=== PATIENT | female | born 1965 | race Caucasian/White ===

== ENCOUNTER → 2021-06-06 12:55 | Outpatient (CLI) | payer OTHER, SELFPAY ==
--- NOTE | 2021-06-06 | DI.RAD.S_ITS ---
PROCEDURE: XR HAND RT 2V INDICATIONS: Pain in right hand TECHNIQUE: 3 views of the hand(s) acquired. COMPARISON: None. FINDINGS: Bones: No fractures or dislocations. Carpal bones are normally aligned. No suspicious bony lesions. Scattered mild IP degenerative changes are present. Soft tissues: No suspicious soft tissue calcifications. IMPRESSION: Scattered IP degenerative changes suggestive early arthritic change. Dictated by: Lennie Gonzales M.D. on 06/06/2021 at 17:35 Approved by: Lennie Gonzales M.D. on 06/06/2021 at 17:35
--- NOTE | 2021-06-06 | DI.RAD.S_ITS ---
PROCEDURE: XR CERVICAL SPINE 2V OR 3V INDICATIONS: cervicalgia TECHNIQUE: 2 view(s) of the cervical spine were acquired. COMPARISON: None. FINDINGS: Bones: No fractures or dislocations to the C7 level. Anterior fusion at C5-C7 is present. Disc space narrowing and endplate osteophyte formation at C4-C5 is present. Odontoid view not obtained. No suspicious bony lesions. Soft tissues: No prevertebral soft tissue swelling. IMPRESSION: 1. Postsurgical sequelae. 2. Degenerative disc disease. Dictated by: Buck Durán M.D. on 06/06/2021 at 15:15 Approved by: Buck Durán M.D. on 06/06/2021 at 15:15
== END ==
PROVIDERS: PCP Physician Assistant; Referring Provider Physician Assistant; Visit Provider Physician Assistant
DX: M79.641 Pain in right hand (principal); M50.30 Other cervical disc degeneration, unspecified cervical region
CPT/HCPCS: 72040; 73120

== ENCOUNTER → 2021-06-09 07:03 | Outpatient (CLI) | payer OTHER, SELFPAY ==
[2021-06-09 07:51] LABS: Add Manual Diff / Slide Review NO; Basophils Absolute Auto 0 /uL (0-100); Basophils Percent Auto 0.7 % (0-2); Eosinophils Absolute Auto 100 /uL (0-450); Eosinophils Percent Auto 2.1 % (2-4); Hematocrit 39.5 % (36-46); Hemoglobin 13.2 g/dL (12.0-16.0); Lymphocytes Absolute Auto 2700 /uL (1100-4500); Lymphocytes Percent Auto 47.9 % (25-40); Mean Corpuscular HGB Conc 33.4 % (30-36); Mean Corpuscular Hemoglobin 28.3 PG (26-34); Mean Corpuscular Volume 84.9 fL (80-100); Monocytes Absolute Auto 500 /uL (0-900); Monocytes Percent Auto 8.3 % (3-14); Neutrophils Absolute Auto 2300 /uL (1500-7000); Platelet Count 231 X10^3/uL (150-400); Red Blood Cell Count 4.65 X10^6/uL (4.0-5.2); White Blood Cell Count 5.7 X10^3/uL (4.5-11.0)
[2021-06-09 08:20] LABS: Alanine Aminotransferase 41 IU/L (<35); Albumin 4.2 g/dL (3.5-5.0); Albumin Globulin Ratio 1.6 (1.0-2.8); Alkaline Phosphatase 67 U/L (38-126); Aspartate Aminotransferase 35 IU/L (14-36); BUN Creatinine Ratio 17.6 (6-22); Bilirubin Total 0.4 mg/dL (0.2-1.3); Blood Urea Nitrogen 13 mg/dL (7-17); Calcium 9.6 mg/dL (8.4-10.2); Carbon Dioxide 25 mmol/L (22-32); Chloride 110 mmol/L (98-107); Cholesterol 153 mg/dL (140-199); Estimated Glomerular Filt Rate > 60.0 mL/min (>60); Globulin 2.7 g/dL (1.7-4.1); Glucose 101 mg/dL (70-100); HDL Cholesterol 56 mg/dL (40-60); HEMOLYSIS < 15 (0-50); LDL Cholesterol Calculated 76 mg/dL (<100); Potassium 4.3 mmol/L (3.4-5.1); Sodium 141 mmol/L (137-145); Total Protein 6.9 g/dL (6.3-8.2); Triglycerides 103 mg/dL (35-150)
[2021-06-09 08:50] LABS: TSH w/ Reflex to FT4 2.95 uIU/mL (0.47-4.68)
== END ==
PROVIDERS: PCP Physician Assistant; Referring Provider Physician Assistant; Visit Provider Physician Assistant
DX: Z13.29 Encounter for screening for other suspected endocrine disorder (principal); Z13.220 Encounter for screening for lipoid disorders
CPT/HCPCS: 36415; 80053; 80061; 84443; 85025

== ENCOUNTER → 2021-07-17 07:04 | Outpatient (CLI) | payer OTHER, SELFPAY ==
[2021-07-17 08:35] LABS: Alanine Aminotransferase 35 IU/L (<35); Albumin Globulin Ratio 1.4 (1.0-2.8); Alkaline Phosphatase 68 U/L (38-126); Aspartate Aminotransferase 32 IU/L (14-36); BUN Creatinine Ratio 28.8 (6-22); Bilirubin Total 0.4 mg/dL (0.2-1.3); Blood Urea Nitrogen 17 mg/dL (7-17); Calcium 9.4 mg/dL (8.4-10.2); Carbon Dioxide 25 mmol/L (22-32); Chloride 109 mmol/L (98-107); Estimated Glomerular Filt Rate > 60.0 mL/min (>60); Globulin 2.9 g/dL (1.7-4.1); Glucose 136 mg/dL (70-100); HEMOLYSIS < 15 (0-50); Potassium 4.3 mmol/L (3.4-5.1); Sodium 138 mmol/L (137-145); Total Protein 6.9 g/dL (6.3-8.2)
== END ==
PROVIDERS: PCP Physician Assistant; Referring Provider Physician Assistant; Visit Provider Physician Assistant
DX: R94.5 Abnormal results of liver function studies (principal)
CPT/HCPCS: 36415; 80053

== ENCOUNTER → 2021-07-25 12:10 | Outpatient (CLI) | payer OTHER, SELFPAY ==
[2021-07-25 15:45] LABS: Hemoglobin A1C% w Est Avg Glu 6.1 % (4.0-6.0)
[2021-07-26 04:09] LABS: HBsAg Screen Negative (Negative); Hepatitis A Antibody IgM Negative (Negative); Hepatitis B Core Antibody IgM Negative (Negative); Hepatitis C Antibody <0.1 s/co ratio (0.0-0.9)
== END ==
PROVIDERS: PCP Physician Assistant; Referring Provider Physician Assistant; Visit Provider Physician Assistant
DX: R94.5 Abnormal results of liver function studies (principal); R73.9 Hyperglycemia, unspecified
CPT/HCPCS: 36415; 80074; 83036

== ENCOUNTER → 2021-08-07 13:44 | Outpatient (CLI) | payer OTHER, SELFPAY ==
--- NOTE | 2021-08-07 | DI.CT.S_ITS ---
PROCEDURE: CT CERVICAL SPINE WO CON INDICATIONS: Spinal stenosis, cervical region TECHNIQUE: Noncontrast 3 mm thick sections acquired from the skull base to the T4 level. Sagittal and coronal reformats were then constructed. For radiation dose reduction, the following was used: automated exposure control, adjustment of mA and/or kV according to patient size. COMPARISON: None. FINDINGS: There are postsurgical changes of C5-C7 ACDF by means of anterior plate and screws. No evidence of acute complicating hardware fracture. No abnormal lucency surrounding the hardware. There is mature osseous fusion across the C5-C6 and C6-C7 disc spaces. There is also fusion across the facet joint spaces at these levels. Normal cervical spine vertebral body height and alignment. There is no spinal canal stenosis at any level. Moderate neural foraminal narrowing on the right at C6-C7. No greater than mild neural foraminal narrowing otherwise. Regional soft tissues are normal. IMPRESSION: Postsurgical changes of C5-C7 ACDF without acute complicating hardware feature identified. Moderate neural foraminal narrowing on the right at C6-C7. No significant spinal canal or neural foraminal stenosis otherwise. Dictated by: Sanjiv Fagan M.D. on 08/07/2021 at 15:35 Approved by: Sanjiv Fagan M.D. on 08/07/2021 at 15:38
== END ==
PROVIDERS: PCP Physician Assistant; Referring Provider Orthopaedic Surgery Orthopaedic Surgery of the Spine; Visit Provider Orthopaedic Surgery Orthopaedic Surgery of the Spine
DX: M48.02 Spinal stenosis, cervical region (principal); Z98.1 Arthrodesis status
CPT/HCPCS: 72125

== ENCOUNTER → 2021-12-18 18:00 | Outpatient (CLI) | payer OTHER, SELFPAY | PROVIDERS: PCP Physician Assistant; Visit Provider Nurse Practitioner Family | DX: K13.79 Other lesions of oral mucosa (principal) | CPT/HCPCS: 87252 ==

== ENCOUNTER → 2022-03-23 07:05 | Outpatient (CLI) | payer OTHER, SELFPAY ==
[2022-03-23 08:32] LABS: Add Manual Diff / Slide Review NO; Basophils Absolute Auto 0 /uL (0-100); Basophils Percent Auto 0.9 % (0-2); Eosinophils Absolute Auto 100 /uL (0-450); Eosinophils Percent Auto 2.1 % (2-4); Hematocrit 39.2 % (36-46); Lymphocytes Absolute Auto 2400 /uL (1100-4500); Mean Corpuscular HGB Conc 33.1 % (30-36); Mean Corpuscular Hemoglobin 28.6 PG (26-34); Mean Corpuscular Volume 86.3 fL (80-100); Monocytes Absolute Auto 500 /uL (0-900); Neutrophils Absolute Auto 2100 /uL (1500-7000); Platelet Count 233 X10^3/uL (150-400); Red Blood Cell Count 4.54 X10^6/uL (4.0-5.2); Red Cell Distribution Width 14.5 % (11.6-14.8); White Blood Cell Count 5.1 X10^3/uL (4.5-11.0)
[2022-03-23 08:38] LABS: Hemoglobin A1C% w Est Avg Glu 5.7 % (4.0-6.0)
[2022-03-23 09:00] LABS: Alanine Aminotransferase 39 IU/L (<35); Albumin 4.1 g/dL (3.5-5.0); Albumin Globulin Ratio 1.4 (1.0-2.8); Alkaline Phosphatase 78 U/L (38-126); Aspartate Aminotransferase 33 IU/L (14-36); BUN Creatinine Ratio 18.8 (6-22); Bilirubin Total 0.4 mg/dL (0.2-1.3); Blood Urea Nitrogen 13 mg/dL (7-17); Carbon Dioxide 24 mmol/L (22-32); Chloride 106 mmol/L (98-107); Cholesterol 151 mg/dL (140-199); Estimated Glomerular Filt Rate > 60 mL/min (>60); Globulin 2.9 g/dL (1.7-4.1); Glucose 97 mg/dL (70-100); HDL Cholesterol 51 mg/dL (40-60); HEMOLYSIS < 15 (0-50); LDL Cholesterol Calculated 78 mg/dL (<100); Potassium 4.1 mmol/L (3.4-5.1); Sodium 141 mmol/L (137-145); Triglycerides 110 mg/dL (35-150)
[2022-03-23 09:09] LABS: Vitamin D 25 Hydroxy (D3) 41.5 ng/mL (30.0-100.0)
[2022-03-23 09:59] LABS: Folate 11.4 ng/mL (2.76-20.0); Vitamin B12 458 pg/mL (239-931)
== END ==
PROVIDERS: PCP Family Medicine; Referring Provider Family Medicine; Visit Provider Family Medicine
DX: R73.03 Prediabetes (principal); R74.8 Abnormal levels of other serum enzymes; E56.9 Vitamin deficiency, unspecified
CPT/HCPCS: 36415; 80053; 80061; 82306; 82607; 82746; 83036; 85025

== ENCOUNTER → 2022-08-07 | Outpatient (CLI) | payer OTHER, SELFPAY ==
--- NOTE | 2022-08-07 | DI.RAD.S_ITS ---
Bone Density Report Name: CHRISTINA ALANIZ V Age: 57 Sex: Female Ethnicity: White Date of : 1965 Indication: postmenopausal; screening for osteoporosis; prior fracture; Referring Provider: AL GUPTA Study: Bone densitometry was performed. Exam Date: August 07, 2022 Accession number: [id number] Bone Density: Region BMD T-score Z-score Classification AP Spine(L1-L4) 1.102 0.5 1.8 Normal Femoral Neck (Left) 0.701 -1.3 -0.1 Osteopenia Total Hip (Left) 0.985 0.4 1.2 Normal Femoral Neck (Right) 0.711 -1.2 0.0 Osteopenia Total Hip (Right) 0.850 -0.8 0.1 Normal Total Hip Mean 0.917 -0.2 0.7 Normal World Health Organization criteria for BMD impression classify patients as: Normal (T-score at or above -1.0), Osteopenia (T-score between -1.0 and -2.5), or Osteoporosis (T-score at or below -2.5). 10-year Fracture Risk(1): Major Osteoporotic Fracture 12% Hip Fracture 0.8% Reported Risk Factors: [place] (), Neck BMD=0.701, BMI=34.9, previous fracture (1) FRAX(R) Version 3.08. Fracture probability calculated for an untreated patient. Fracture probability may be lower if the patient has received treatment. Impression: The patient has low bone mass, based on the Left Femoral Neck T-score. The patient has an estimated ten-year risk of hip fracture of 0.8% and an estimated ten-year risk of major fracture of 12%, based on the WHO FRAX algorithm. The patient has risk factors, including: previous fracture. Discussion: BONE DENSITY IS LOW AT ONE OR MORE SKELETAL SITES. This patient's lowest T-score is low at one or more skeletal sites. It meets the World Health Organization's (WHO) criteria for low bone mass (T-score between -1.0 and -2.5). The patient's 10-year risk of fracture as calculated by FRAX is less than the threshold where pharmacological therapy is recommended by the National Osteoporosis Foundation (NOF). However, all treatment decisions require clinical judgment and consideration of individual patient factors, including patient preferences, comorbidities, previous drug use, risk factors not captured in the FRAX model (e.g., frailty, falls, vitamin D deficiency, increased bone turnover, interval significant decline in bone density) and possible under or overestimation of fracture risk by FRAX. The patient should follow a healthful lifestyle (good nutrition with adequate calcium and vitamin D, and appropriate weight-bearing exercise). Follow-Up: Consider repeating this study in 2 to 3 years to reassess this patient's status, or sooner if there is some new clinical indication. Reported by: LORE WATERMAN M.D. on 08/07/2022 11:15:00 AM.
--- NOTE | 2022-08-07 | DI.MG.S_ITS ---
BILATERAL DIGITAL SCREENING MAMMOGRAM 3D/2D WITH CAD: 08/07/2022 CLINICAL: Routine screening. Baseline by default. No prior exams were available for comparison. There are scattered areas of fibroglandular density in both breasts (category b / 25%-50% glandular tissue). Current study was also evaluated with a Computer Aided Detection (CAD) system. There are benign calcifications in both breasts. No significant masses, calcifications, or other findings are seen in either breast. IMPRESSION: BENIGN There is no mammographic evidence of malignancy. A 1 year screening mammogram is recommended. Based on the Tyrer Cuzick model (a risk assessment model) the patient's lifetime risk is 7.7% and her 10 year risk is 2.8%. According to the ACR, ACS, and NCCN guidelines, an annual breast MRI exam along with mammogram is recommended if the patient's lifetime risk is 20% or greater. This exam was interpreted at Station ID: [id number]. NOTE: For mammograms, a report in lay terms will be sent to the patient. Approximately 15% of breast malignancies will not be visualized mammographically. In the management of a palpable breast mass, a negative mammogram must not discourage biopsy of a clinically suspicious lesion. Electronically Signed By: Kolby williamson/scott:08/07/2022 16:25:24 letter sent: Normal Exam ACR BI-RADS Category 2: Benign Finding(s) 3342F
== END ==
LOC: RAD 10:50
PROVIDERS: PCP Family Medicine; Referring Provider Family Medicine; Visit Provider Family Medicine
DX: Z12.31 Encounter for screening mammogram for malignant neoplasm of breast (principal); Z78.0 Asymptomatic menopausal state; Z13.820 Encounter for screening for osteoporosis; M85.852 Other specified disorders of bone density and structure, left thigh
CPT/HCPCS: 77063; 77067; 77080

== ENCOUNTER → 2022-10-21 15:23 | Outpatient (CLI) | payer OTHER, SELFPAY ==
--- NOTE | 2022-10-21 15:25 | DI.RAD.S_ITS ---
PROCEDURE: XR CHEST 2V INDICATIONS: Cough TECHNIQUE: 2 views of the chest were acquired. COMPARISON: None. FINDINGS: Surgical changes and devices: Postsurgical changes of the lower cervical spine. Status post cholecystectomy. Lungs and pleura: Lungs are clear. No pleural effusions or pneumothorax. Mediastinum: Mediastinal contours are normal. Heart size is normal. Bones and chest wall: No suspicious bony abnormalities. Soft tissues appear unremarkable. IMPRESSION: No evidence of an acute cardiopulmonary abnormality. Dictated by: Clive Lynch D.O. on 10/21/2022 at 14:58 Approved by: Clive Lynch D.O. on 10/21/2022 at 14:59
== END ==
PROVIDERS: PCP Family Medicine; Referring Provider Registered Nurse; Visit Provider Registered Nurse
DX: R05.9 Cough, unspecified (principal)
CPT/HCPCS: 71046

== ENCOUNTER → 2023-06-18 07:22 | Outpatient (CLI) | payer OTHER, SELFPAY ==
[2023-06-18 08:33] LABS: Hemoglobin A1C% w Est Avg Glu 5.9 % (4.0-6.0)
[2023-06-18 08:34] LABS: Alanine Aminotransferase 44 IU/L (<35); Albumin 4.1 g/dL (3.5-5.0); Albumin Globulin Ratio 1.3 (1.0-2.8); Alkaline Phosphatase 69 U/L (38-126); Aspartate Aminotransferase 33 IU/L (14-36); BUN Creatinine Ratio 21.3 (6-22); Bilirubin Total 0.6 mg/dL (0.2-1.3); Blood Urea Nitrogen 13 mg/dL (7-17); Calcium 9.8 mg/dL (8.4-10.2); Carbon Dioxide 24 mmol/L (22-32); Chloride 108 mmol/L (98-107); Estimated Glomerular Filt Rate > 60 mL/min (>60); Globulin 3.1 g/dL (1.7-4.1); Glucose 98 mg/dL (70-100); HEMOLYSIS < 15 (0-50); Potassium 4.3 mmol/L (3.4-5.1); Sodium 140 mmol/L (137-145); Total Protein 7.2 g/dL (6.3-8.2)
== END ==
LOC: LAB 07:23
PROVIDERS: PCP Nurse Practitioner Family; Referring Provider Nurse Practitioner Family; Visit Provider Nurse Practitioner Family
DX: R73.9 Hyperglycemia, unspecified (principal)
CPT/HCPCS: 36415; 80053; 83036

== ENCOUNTER → 2023-06-28 11:29 | Outpatient (CLI) | payer OTHER, SELFPAY ==
--- NOTE | 2023-06-28 11:31 | DI.RAD.S_ITS ---
PROCEDURE: XR SHOULDER RT MIN 2V INDICATIONS: SHOULDER PAIN TECHNIQUE: 3 views of the shoulder were acquired. COMPARISON: CR, XR CHEST 2V, 10/21/2022, 15:22. FINDINGS: Bones: No fractures or dislocations. No suspicious bony lesions. Visualized ribs appear intact. Moderate acromioclavicular joint space narrowing with periarticular osteophyte formation. Lower cervical spine fixation hardware incompletely visualized. Soft tissues: No suspicious soft tissue calcifications. IMPRESSION: 1. No acute bony abnormality. 2. Moderate acromioclavicular joint degeneration. Dictated by: Nick Faith [facility] Interpreted: Jed Perez MD on 06/28/2023 at 11:50 Transcribed by: NOHELIA on 06/28/2023 at 11:51 Approved by: Jed Perez M.D. on 06/28/2023 at 13:54
== END ==
LOC: RAD 11:30
PROVIDERS: PCP Nurse Practitioner Family; Referring Provider Nurse Practitioner Family; Visit Provider Nurse Practitioner Family
DX: M19.011 Primary osteoarthritis, right shoulder (principal); M25.511 Pain in right shoulder
CPT/HCPCS: 73030

== ENCOUNTER → 2024-01-16 11:17 | Outpatient (CLI) | payer OTHER, SELFPAY ==
--- NOTE | 2024-01-16 11:21 | DI.RAD.S_ITS ---
PROCEDURE: XR ELBOW RT MIN 3V INDICATIONS: RIGHT ELBOW PAIN TECHNIQUE: 3 views of the elbow were acquired. COMPARISON: None. FINDINGS: There is a small curvilinear ossific fragment adjacent to the medial epicondyle which may represent an old avulsion injury. Do not see evidence for acute fracture or dislocation. No significant degenerative changes are seen. No joint effusion is identified. No bony lytic or sclerotic lesions are seen. IMPRESSION: 1. No acute bony abnormality or significant joint effusion. 2. Curvilinear ossific density adjacent to the medial epicondyle which may represent old avulsion injury. Dictated by: Shekhar De Guzman M.D. on 01/16/2024 at 12:50 Approved by: Shekhar De Guzman M.D. on 01/16/2024 at 12:54
[2024-01-16 12:09] LABS: Add Manual Diff / Slide Review NO; Basophils Absolute Auto 0 /uL (0-100); Basophils Percent Auto 0.8 % (0-2); Eosinophils Absolute Auto 100 /uL (0-450); Eosinophils Percent Auto 1.7 % (2-4); Hematocrit 41.8 % (36-46); Lymphocytes Absolute Auto 2300 /uL (1100-4500); Lymphocytes Percent Auto 43.2 % (25-40); Mean Corpuscular HGB Conc 33.5 % (30-36); Mean Corpuscular Hemoglobin 28.7 PG (26-34); Mean Corpuscular Volume 85.7 fL (80-100); Monocytes Absolute Auto 500 /uL (0-900); Monocytes Percent Auto 9.1 % (3-14); Neutrophils Absolute Auto 2400 /uL (1500-7000); Neutrophils Percent Auto 45.2 % (50-75); Platelet Count 253 X10^3/uL (150-400); Red Blood Cell Count 4.87 X10^6/uL (4.0-5.2); Red Cell Distribution Width 13.9 % (11.6-14.8); White Blood Cell Count 5.3 X10^3/uL (4.5-11.0)
[2024-01-16 12:27] LABS: Erythrocyte Sedimentation Rate 7 MM/HR (0-20)
[2024-01-16 12:30] LABS: C-Reactive Protein Quant < 0.5 mg/dL (<1.0); Uric Acid 6.7 mg/dL (2.5-6.2)
[2024-01-16 17:09] LABS: Rheumatoid Factor < 8.6 IU/mL (<12.0)
[2024-01-18 14:08] LABS: CCP Antibodies IgG/IgA 6 units (0-19)
[2024-01-20 17:07] LABS: ANA Screen, IFA Negative (.)
== END ==
PROVIDERS: PCP Nurse Practitioner Family; Referring Provider Nurse Practitioner Family; Visit Provider Nurse Practitioner Family
DX: M25.521 Pain in right elbow (principal)
CPT/HCPCS: 36415; 73080; 84550; 85025; 85651; 86038; 86140; 86200; 86235; 86430

== ENCOUNTER → 2024-03-05 17:22 | Outpatient (CLI) | payer OTHER, SELFPAY ==
[2024-03-05 17:59] LABS: Add Manual Diff / Slide Review NO; Basophils Absolute Auto 0 /uL (0-100); Basophils Percent Auto 0.5 % (0-2); Eosinophils Absolute Auto 100 /uL (0-450); Eosinophils Percent Auto 1.9 % (2-4); Hematocrit 42.5 % (36-46); Hemoglobin 14.2 g/dL (12.0-16.0); Lymphocytes Absolute Auto 2900 /uL (1100-4500); Mean Corpuscular HGB Conc 33.3 % (30-36); Mean Corpuscular Hemoglobin 28.6 PG (26-34); Mean Corpuscular Volume 85.7 fL (80-100); Monocytes Absolute Auto 600 /uL (0-900); Monocytes Percent Auto 7.9 % (3-14); Neutrophils Absolute Auto 3400 /uL (1500-7000); Neutrophils Percent Auto 48.7 % (50-75); Platelet Count 260 X10^3/uL (150-400); Red Blood Cell Count 4.96 X10^6/uL (4.0-5.2); Red Cell Distribution Width 14.1 % (11.6-14.8)
[2024-03-05 18:21] LABS: Erythrocyte Sedimentation Rate 6 MM/HR (0-20)
[2024-03-05 18:22] LABS: Uric Acid 7.2 mg/dL (2.5-6.2)
[2024-03-05 18:42] LABS: C-Reactive Protein Quant < 0.5 mg/dL (<1.0)
== END ==
LOC: LAB 17:25
PROVIDERS: PCP Nurse Practitioner Family; Referring Provider Nurse Practitioner Family; Visit Provider Nurse Practitioner Family
DX: M25.521 Pain in right elbow (principal); M25.50 Pain in unspecified joint
CPT/HCPCS: 36415; 84550; 85025; 85651; 86038; 86140; 86200; 86235

== ENCOUNTER 2024-10-17 02:14 | Emergency (ER) | payer OTHER, SELFPAY ==
[2024-10-17] VITALS (16 sets, daily range): BP systolic 153–190; BP diastolic 79–98; PULSE 55–84; RESP 13–20; TEMP 36.7; O2SAT 96–98; BMI 34.7
--- NOTE | 2024-10-17 02:23 | EKG_ITS ---
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
--- NOTE | 2024-10-17 02:29 | DI.RAD.S_ITS ---
PROCEDURE: XR CHEST 1V INDICATIONS: Chest Pain TECHNIQUE: One view of the chest was acquired. COMPARISON: [facility], CR, XR CHEST 2V, 10/21/2022, 15:22. FINDINGS: Surgical changes and devices: Lower cervical spine fixation hardware is partially seen. Cholecystectomy clips are seen. Lungs and pleura: Lungs are clear. No pleural effusions or pneumothorax. Mediastinum: Mediastinal contours appear normal. Heart size is normal. Bones and chest wall: No suspicious bony lesions. Age-appropriate bony degenerative changes are seen. Overlying soft tissues appear unremarkable. IMPRESSION: No acute cardiopulmonary abnormality is seen. Postoperative and degenerative changes are seen. Note: No significant discrepancy from the preliminary report. Dictated by: Rio Fitzgerald M.D. on 10/17/2024 at 10:03 Approved by: Rio Fitzgerald M.D. on 10/17/2024 at 10:03
[2024-10-17 02:59] LABS: Add Manual Diff / Slide Review NO; Basophils Absolute Auto 100 /uL (0-100); Basophils Percent Auto 0.8 % (0-2); Eosinophils Absolute Auto 100 /uL (0-450); Eosinophils Percent Auto 1.9 % (2-4); Hematocrit 40.7 % (36-46); Hemoglobin 13.9 g/dL (12.0-16.0); Lymphocytes Absolute Auto 3100 /uL (1100-4500); Lymphocytes Percent Auto 46.9 % (25-40); Mean Corpuscular HGB Conc 34.1 % (30-36); Mean Corpuscular Hemoglobin 28.9 PG (26-34); Mean Corpuscular Volume 84.6 fL (80-100); Monocytes Absolute Auto 500 /uL (0-900); Monocytes Percent Auto 7.6 % (3-14); Neutrophils Absolute Auto 2800 /uL (1500-7000); Neutrophils Percent Auto 42.8 % (50-75); Platelet Count 233 X10^3/uL (150-400); Prothrombin Time 11.3 SECONDS (9.4-12.5); Red Blood Cell Count 4.81 X10^6/uL (4.0-5.2); Red Cell Distribution Width 14.8 % (11.6-14.8); White Blood Cell Count 6.6 X10^3/uL (4.5-11.0)
[2024-10-17 03:02] LABS: PTT Partial Thromboplastin Tim 35 SECONDS (25.1-36.5)
[2024-10-17 03:35] LABS: Alanine Aminotransferase 42 IU/L (<35); Albumin 4.3 g/dL (3.5-5.0); Albumin Globulin Ratio 1.4 (1.0-2.8); Alkaline Phosphatase 75 U/L (38-126); Aspartate Aminotransferase 38 IU/L (14-36); BUN Creatinine Ratio 21.9 (6-22); Bilirubin Total 0.6 mg/dL (0.2-1.3); Blood Urea Nitrogen 16 mg/dL (7-17); Calcium 9.3 mg/dL (8.4-10.2); Carbon Dioxide 24 mmol/L (22-32); Chloride 107 mmol/L (98-107); Creatine Kinase 287 U/L (30-135); Estimated Glomerular Filt Rate > 60 mL/min (>60); Glucose 110 mg/dL (70-99); HEMOLYSIS < 15 (0-50); Lipase 303 U/L (23-300); Potassium 3.9 mmol/L (3.4-5.1); Sodium 140 mmol/L (137-145); Total Protein 7.3 g/dL (6.3-8.2)
[2024-10-17 03:46] LABS: NT-proBNP (BNP-Adult 18+) 118 pg/mL (<125); Troponin I 0.014 ng/mL (0.01-0.034)
[2024-10-17] MEDS: ASPIRIN 81 MG CHEW TAB 324 MG PO (04:15)
--- NOTE | 2024-10-17 04:40 | ED.ARRPALP ---
HPI - Arrhythmia/Palpitations General Chief Complaint: Arrhythmia/Palpitations Stated Complaint: Nausea, dizziness, rapid heart rate, Lft arm numb Time Seen by Provider: 10/17/24 04:39 Source: patient, RN notes reviewed and old records reviewed Mode of arrival: Ambulatory Limitations: no limitations History of Present Illness HPI narrative: 59-year-old female history of hypertension with complaint of fluttering in chest, patient describes it as a flip-flopping feeling. States she was had skipped beats in the past but this felt different. She states no real chest pressure or shortness of breath. She states it started around midnight she was able to fall asleep but woke up again with symptoms. She did feel little dizzy like she might pass out but did not ever have any syncope. She was describes some mild nausea but no vomiting. No diaphoresis. States she was got chronic radiculopathy in her left upper extremity but states it was worse this evening. She has not had any vomiting no issues with bowel movements no issues with urination. Patient states she was to take antihypertensives but her and her physician have stopped for the past 4-5 months and monitoring her blood pressure. Patient has spinal fusion history of laminectomy, cholecystectomy need hip surgery. She would have a cardiac catheterization in 2012 for clearance for surgery which was negative at that time. She notes allergies to multiple narcotics. No tobacco, 1 alcoholic drink weekly. No recreational drugs. Patient does have 2 cups of coffee daily. Related Data Home Medications ?Medication ?Instructions ?Recorded ?Confirmed chlorthalidone 25 mg tablet 25 mg PO QAM 07/22/24 09/07/24 Allergies Allergy/AdvReac Type Severity Reaction Status Date / Time hydrocodone Allergy Mild Rash Verified 09/07/24 15:28 hydromorphone (From Dilaudid) AdvReac Severe rash, Verified 09/07/24 15:28 itching, vomiting, nightmares morphine AdvReac Severe rash, n/v, Verified 09/07/24 15:28 sick, nightmares Review of Systems Review of Systems ROS Unobtainable: All systems reviewed & are unremarkable except as noted in HPI and below Patient History Medical History Hearing decreased Neck strain (~2017) Plantar warts Back pain Cervical spine disease Lumbar disc disease Fractures Vertigo (~2010) Tinnitus (~2021) Anxiety Essential hypertension Surgical History Anesthesia History of cholecystectomy Bone cyst History of knee surgery History of cardiac catheterization (~2012) [place] teeth removed (05/20/81) S/P cervical spinal fusion S/P laminectomy S/P carpal tunnel release Social History Smoking Status: Never smoker Smoking Status: Never smoker Exam Narrative Exam Narrative: GENERAL: Alert and oriented x three, well-appearing female in mild distress HEENT: Head normocephalic, atraumatic, EOMI, pupils reactive, face symmetric, moist mucous membranes NECK: Supple, full range of motion CARDIOVASCULAR: Regular rate and rhythm without murmurs, rubs or gallops. No JVD. No edema bilateral lower extremities. RESPIRATORY: Breath sounds equal bilaterally, no wheezes rales or rhonchi. No tachypnea or accessory muscle use ABDOMEN: Soft, nontender. Normoactive bowel sounds all 4 quadrants. No guarding or rebound, rigidity, no mass : No CVA tenderness EXTREMITIES: Normal range of motion, no clubbing or edema. Neurovascularly intact NEUROLOGICAL: Cranial nerves II through XII grossly intact. Moving all extremities SKIN: Warm, dry, no petechiae, no rashes or lesions. Initial Vital Signs Initial Vital Signs: Vital Signs Temperature 98.0 F 10/17/24 02:24 Pulse Rate 82 10/17/24 02:24 Respiratory Rate 20 10/17/24 02:24 Blood Pressure 190/98 H 10/17/24 02:24 Pulse Oximetry 97 10/17/24 02:24 Oxygen Delivery Method Room Air 10/17/24 02:24 Course Orders Ordered: Discontinued Medications Aspirin (Aspirin 81 Mg Chew Tab) 324 mg PO NOW ONE Stop: 10/17/24 02:30 Last Admin: 10/17/24 04:15 Dose: 324 mg Documented By: MATTHEW Vital Signs Vital signs: Vital Signs - 8 hr 10/17/24 02:24 10/17/24 02:25 10/17/24 02:26 Temperature 98.0 F Pulse Rate 82 84 Respiratory Rate 20 18 Blood Pressure 190/98 H 190/98 H Pulse Oximetry 97 98 Oxygen Delivery Method Room Air 10/17/24 02:26 10/17/24 02:30 10/17/24 02:30 Temperature Pulse Rate 83 83 Respiratory Rate 15 14 Blood Pressure 186/98 H Pulse Oximetry 97 98 Oxygen Delivery Method 10/17/24 03:00 10/17/24 03:00 10/17/24 03:30 Temperature Pulse Rate 76 69 Respiratory Rate 15 Blood Pressure 153/82 H Pulse Oximetry 97 97 Oxygen Delivery Method 10/17/24 03:31 10/17/24 03:31 10/17/24 04:00 Temperature Pulse Rate 67 62 Respiratory Rate 15 13 Blood Pressure 170/84 H Pulse Oximetry 97 97 Oxygen Delivery Method 10/17/24 04:01 10/17/24 04:01 Temperature Pulse Rate 63 Respiratory Rate 14 Blood Pressure 164/84 H Pulse Oximetry 97 Oxygen Delivery Method MDM - Arrhythmia/Palpitations Lab Data 10/17/24 02:41 10/17/24 02:41 Labs: Lab Results 10/17/24 10/17/24 Range/Units 02:41 04:58 WBC 6.6 (4.5-11.0) X10^3/uL RBC 4.81 (4.0-5.2) X10^6/uL Hgb 13.9 (12.0-16.0) g/dL Hct 40.7 (36-46) % MCV 84.6 (80-100) fL MCH 28.9 (26-34) PG MCHC 34.1 (30-36) % RDW 14.8 (11.6-14.8) % Plt Count 233 (150-400) X10^3/uL Neut % (Auto) 42.8 L (50-75) % Lymph % (Auto) 46.9 H (25-40) % [place] % (Auto) 7.6 (3-14) % Eos % (Auto) 1.9 L (2-4) % Baso % (Auto) 0.8 (0-2) % Neut # (Auto) 2800 (2704-5199) /uL Lymph # (Auto) 3100 (9397-0122) /uL [place] # (Auto) 500 (0-900) /uL Eos # (Auto) 100 (0-450) /uL Baso # (Auto) 100 (0-100) /uL PT 11.3 (9.4-12.5) SECONDS INR 1.0 (0.9-1.3) APTT 35 (25.1-36.5) SECONDS Sodium 140 (137-145) mmol/L Potassium 3.9 (3.4-5.1) mmol/L Chloride 107 (98-107) mmol/L Carbon Dioxide 24 (22-32) mmol/L BUN 16 (7-17) mg/dL Creatinine 0.73 (0.52-1.04) mg/dL Estimated GFR > 60 (>60) mL/min BUN/Creatinine Ratio 21.9 (6-22) Glucose 110 H (70-99) mg/dL Calcium 9.3 (8.4-10.2) mg/dL Magnesium 2.0 (1.6-2.3) mg/dL Total Bilirubin 0.6 (0.2-1.3) mg/dL AST 38 H (14-36) IU/L ALT 42 H (<35) IU/L Alkaline Phosphatase 75 (38-126) U/L Total Creatine Kinase 287 H (30-135) U/L Troponin I 0.014 < 0.012 (0.01-0.034) ng/mL NT-Pro-B Natriuret Pep 118 (<125) pg/mL Total Protein 7.3 (6.3-8.2) g/dL Albumin 4.3 (3.5-5.0) g/dL Globulin 3.0 (1.7-4.1) g/dL Albumin/Globulin Ratio 1.4 (1.0-2.8) Lipase 303 H (23-300) U/L ECG Data Attestation: I personally reviewed and interpreted this ECG as follows: Prior ECG tracings: not available for review Interpretation: Sinus rhythm rate of 90, GA 174 QRS 84 QTC of 459, no acute ST elevation or depression noted. No prior for comparison. MDM Narrative Medical decision making narrative: EKG shows sinus rhythm, no acute ST changes no prior for comparison. Labs show normal white count, hemoglobin and platelets, predominance of lymphocytes. Coags are negative, electrolytes, BUN creatinine are normal glucose is 110, AST 38 ALT is 42 total CK is 287 troponin 0.014 lipase of 303. Repeat troponin is less than 0.012 Chest x-ray shows no acute process. Patient presents with complaint of palpitations, has a history of palpitations in the past but states this does feel different. Workup does not show any acute change, no arrhythmias in the department. Discharge Plan Departure Patient Disposition: Home Clinical Impression: Palpitations Instructions: DI for Palpitations Activity Restrictions/Additional Instructions: Follow up for recheck with your physician, you may benefit from Holter monitor or ZIO patch. Please return for new or worsening symptoms, new chest pain, new shortness of breath, lightheadedness or passing out, persistent palpitations or fast heartbeat, new swelling of your extremities or other new or concerning changes. Prescriptions: No Action chlorthalidone 25 mg tablet 25 mg PO QAM Referrals: Patricia Villa MD [Primary Care Provider, Family Practice] Stand Alone Forms: Patient Portal/API/Survey
[2024-10-17 05:30] LABS: Troponin I < 0.012 ng/mL (0.01-0.034)
== END 2024-10-17 06:39 | disposition home or self-care (01) ==
PROVIDERS: Emergency Provider Emergency Medicine; PCP Family Medicine
DX: R00.2 Palpitations (principal)
CPT/HCPCS: 36415; 71045; 80053; 82550; 83690; 83735; 83880; 84484; 85025; 85610; 85730; 93005; 99284

== ENCOUNTER → 2025-01-28 13:18 | Outpatient (CLI) | payer OTHER, SELFPAY ==
--- NOTE | 2025-01-28 13:21 | DI.MG.S_ITS ---
MM diagnostic mammo unilat LT: 01/28/2025. BI-RADS: 2 CLINICAL: 59-year old female for left diagnostic mammogram that is a recall from screening on 01/12/2025. Tyrer-Cuzick lifetime risk of 12.5%. No personal or first-degree family history of breast cancer. PRIOR EXAMS Mammogram(s): 01/12/2025, 08/07/2022, 01/07/2020, 12/25/2018. MAMMOGRAPHY TECHNIQUE: 2D and 3D (tomosynthesis) digital mammographic views obtained, with additional images as needed for full coverage. Current study was also evaluated with a Computer Aided Detection (CAD) system. DENSITY Left: C. The breast is heterogeneously dense, which may obscure small masses. MAMMOGRAPHY FINDINGS Left: Upper Outer Quadrant: Correlating with findings on screening mammogram there are benign large leeanne-like calcifications in regional distribution. IMPRESSION: Left * No evidence of malignancy with benign findings. RECOMMENDATIONS Bilateral * Annual screening mammography. COMMENTS: Findings and recommendations were conveyed to the patient during today's evaluation. OVERALL ASSESSMENT CATEGORY BI-RADS-2: Benign. The [employer] recommends annual screening mammography beginning at age 40 for women with average risk of breast cancer. ELECTRONICALLY SIGNED: Elodia Campbell M.D. on 01/28/2025 at 02:30:07 PM PT Interpreting Station ID: [id number]
== END ==
LOC: MAMMO 13:18
PROVIDERS: PCP Family Medicine; Referring Provider Family Medicine; Visit Provider Family Medicine
DX: R92.8 Other abnormal and inconclusive findings on diagnostic imaging of breast (principal); R92.1 Mammographic calcification found on diagnostic imaging of breast; R92.332 Mammographic heterogeneous density, left breast
CPT/HCPCS: 77065; G0279